=== PATIENT | female | born 1960 | race African-American/Black ===

== ENCOUNTER 2017-03-15 08:22 | Day surgery (SDC) | payer MEDICAID ==
[~2017-03-15] VITALS: Ht 172.7 cm; Wt 87.1 kg
[2017-03-15] MEDS ORDERED: TROPICAMIDE 1% OPHTH DROPS 15ML LEFTEYE ONE (09:10)
[2017-03-15] MEDS ORDERED: CYCLOPENTOLATE HCL 1% OPHTH DROPS 2ML LEFTEYE ONE (09:10)
[2017-03-15] MEDS ORDERED: PHENYLEPHRINE HCL 10% OPHTH DROPS 5ML LEFTEYE ONE (09:10)
[2017-03-15] MEDS ORDERED: BALANCED SALT IRRIG SOLN COMB1 500ML OP SCH (10:00)
[2017-03-15] MEDS ORDERED: LACTATED RINGERS 1,000 ML IV SCH (11:15)
[2017-03-15] MEDS ORDERED: ASPI-1159 PO (12:29)
[2017-03-15] MEDS ORDERED: UBID50TA3 PO (12:29)
[2017-03-15] MEDS ORDERED: METF10002 PO (12:29)
[2017-03-15] MEDS ORDERED: ACET-2178 PO (12:29)
[2017-03-15] MEDS ORDERED: PRAV40TA58 PO (12:29)
[2017-03-15] MEDS ORDERED: LISI-186 PO (12:29)
[2017-03-15] MEDS ORDERED: BETA1TAB20 PO (12:29)
[2017-03-15] MEDS ORDERED: HYALURONATE SODIUM 14 MG/ML 0.85ML SYRINGE IO ONE (12:31)
[2017-03-15] MEDS ORDERED: LIDOCAINE HCL 1% 20ML VIAL (Pyxis) INJ ONE (12:48)
[2017-03-15] MEDS ORDERED: PROPOFOL 200MG/20ML VIAL IV ONE ×2 (12:48→13:06)
[2017-03-15] MEDS ORDERED: LABETALOL HCL 5MG/ML VIAL 20ML IV PRN (13:00)
[2017-03-15] MEDS ORDERED: MEPERIDINE HCL/PF 25MG/ML CPJ IV PRN (13:00)
[2017-03-15] MEDS ORDERED: ONDANSETRON HCL 4MG/2ML VIAL IV PRN (13:00)
[2017-03-15] MEDS ORDERED: BALANCED SALT IRRIG SOLN 15ML ONE (13:12)
[2017-03-15] MEDS ORDERED: LIDOCAINE HCL/PF 2% 20 MG/ML 10ML VIAL ONE (13:12)
[2017-03-15] MEDS ORDERED: LIDOCAINE HCL 2%/EPINEPHRINE 1:100,000 20 ML VIAL INFIL ONE (13:12)
[2017-03-15] MEDS ORDERED: CIPROFLOXACIN 0.3% OPHTH SOLN 2.5ML ONE (13:12)
[2017-03-15] MEDS ORDERED: TETRACAINE 0.5% OPHTH DROPS 4ML ONE (13:12)
[2017-03-15] MEDS ORDERED: PREDNISOLONE ACETATE 1% OPHTH DROPS 1ML ONE (13:12)
[2017-03-15] MEDS ORDERED: NEO/POLYMYX B SULF/DEXAMETH OPHTH OINT 3.5GM ONE (13:12)
[2017-03-15] MEDS ORDERED: BUPIVACAINE HCL/PF 0.75% (7.5MG/ML) 10ML ONE (13:12)
== END 2017-03-15 14:30 | disposition home or self-care (01) ==
LOC: OR 08:22
PROVIDERS: ATTEND Ophthalmology
DX: H25.89 Other age-related cataract (principal); E11.36 Type 2 diabetes mellitus with diabetic cataract; I10 Essential (primary) hypertension
CPT/HCPCS: 66984; 82962; C1893; J3490; J7120; V2632; J2704

== ENCOUNTER 2017-06-14 06:43 | Day surgery (SDC) | payer MEDICAID ==
[~2017-06-14] VITALS: Ht 172.7 cm; Wt 86.6 kg
[~2017-06-14 06:43] MED LIST: ACET-2178 PO; ASPI-1159 PO; BETA1TAB20 PO; LISI-186 PO; METF10002 PO; PRAV40TA58 PO; UBID50TA3 PO
[2017-06-14] MEDS ORDERED: TROPICAMIDE 1% OPHTH DROPS 15ML RIGHTEYE ONE (08:25)
[2017-06-14] MEDS ORDERED: PHENYLEPHRINE HCL 10% OPHTH DROPS 5ML RIGHTEYE ONE (08:25)
[2017-06-14] MEDS ORDERED: CYCLOPENTOLATE HCL 1% OPHTH DROPS 2ML RIGHTEYE ONE (08:25)
[2017-06-14] MEDS ORDERED: LACTATED RINGERS 1,000 ML IV SCH (09:15)
[2017-06-14] MEDS ORDERED: BALANCED SALT IRRIG SOLN COMB1 500ML OP ONE (09:15)
[2017-06-14] MEDS ORDERED: LIDOCAINE HCL/PF 2% 20 MG/ML 10ML VIAL ONE (11:12)
[2017-06-14] MEDS ORDERED: CIPROFLOXACIN 0.3% OPHTH SOLN 2.5ML ONE (11:12)
[2017-06-14] MEDS ORDERED: ACETYLCHOLINE CHLORIDE INTRAOCULAR SOLUTION 1:100 ELECTROLYTE DILUENT IO ONE (11:12)
[2017-06-14] MEDS ORDERED: BUPIVACAINE HCL/PF 0.75% (7.5MG/ML) 10ML ONE (11:12)
[2017-06-14] MEDS ORDERED: BALANCED SALT IRRIG SOLN 15ML ONE (11:12)
[2017-06-14] MEDS ORDERED: PREDNISOLONE ACETATE 1% OPHTH DROPS 1ML ONE (11:12)
[2017-06-14] MEDS ORDERED: LIDOCAINE HCL 2%/EPINEPHRINE 1:100,000 20 ML VIAL INFIL ONE (11:12)
[2017-06-14] MEDS ORDERED: TETRACAINE 0.5% OPHTH DROPS 4ML ONE (11:12)
[2017-06-14] MEDS ORDERED: NEO/POLYMYX B SULF/DEXAMETH OPHTH OINT 3.5GM ONE (11:12)
[2017-06-14] MEDS ORDERED: HYALURONATE SODIUM 14 MG/ML 0.85ML SYRINGE IO ONE (12:08)
[2017-06-14] MEDS ORDERED: MIDAZOLAM HCL 5 MG/5 ML VIAL ONE ×2 (13:28→14:50)
[2017-06-14] MEDS ORDERED: PROPOFOL 200MG/20ML VIAL IV ONE ×2 (13:33→14:36)
[2017-06-14] MEDS ORDERED: NALOXONE HCL 0.4 MG/ML 1ML VIAL ONE ×2 (14:50→15:11)
== END 2017-06-14 15:50 | disposition home or self-care (01) ==
LOC: OR 06:43
PROVIDERS: ATTEND Ophthalmology
DX: H25.89 Other age-related cataract (principal); E11.9 Type 2 diabetes mellitus without complications; I10 Essential (primary) hypertension; E66.3 Overweight
CPT/HCPCS: 66984; 82962; 93005; C1893; J2250; J2310; J3490; J7120; V2632; J2704